=== PATIENT | male | born 1975 | race Caucasian/White ===

== ENCOUNTER 2020-05-19 15:23 | Inpatient (IN) | payer OTHER, SELFPAY ==
[2020-05-19 15:23] VITALS: BP 150/65; PULSE 93; RESP 18; TEMP 37.5; O2SAT 98; BMI 24.4
--- NOTE | 2020-05-19 15:47 | W.ED.PSYCH ---
HPI - Psych General: Chief Complaint: Psychiatric Symptoms Stated Complaint: 96 Time Seen by Provider: 05/19/20 15:35 History of Present Illness: HPI Narrative: 44-year-old male brought in by [facility] on a 96-hour hold. 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 He is tearful and apologetic now. He was held overnight in senior care judges she did 96-hour mental health evaluation he was brought to the ER this afternoon. He denies being suicidal now but he does make comments about he has difficulty controlling his thoughts and emotions and he will have rapid alternating what he describes as very excitable highs and then he will crash and be extremely depressed at various times. This is been an ongoing cycle for him for some time. He notes it is exacerbated by alcohol use. MD complaint: suicidal ideation and feels depressed Onset (ago): hour(s) Duration: intermittent History of same: Yes Exacerbating factors: alcohol Context: recent alcohol abuse Associated psychiatric symptoms: suicidal ideation and racing thoughts Associated symptoms: Reports depression and suicidal ideation; Deny auditory hallucinations, visual hallucinations, delusions, homicidal ideation or racing thoughts Treatments prior to arrival: placed on mental health hold If self harm: admits thoughts of self harm and has acted on plan Review of Systems Const: Denies: fever(s), chills, body aches, change in appetite, fatigue or malaise ENMT: Denies: throat pain, ear or mastoid pain, nasal discharge or nasal congestion Card: Denies: chest pain, edema, dyspnea on exertion or orthopnea Resp: Denies: dyspnea, productive cough or non-productive cough GI: Denies: abdominal pain, nausea, vomiting, hematemesis, coffee ground emesis, diarrhea, constipation, bloating, hematochezia or melena : Denies: flank pain, dysuria, urinary frequency or urinary urgency Skin/Breast: Denies: rash or pruritus Psych: Reports: depression and suicidal ideation; Denies: visual hallucinations, auditory hallucinations or homicidal ideation Physical Exam Const: COMMON NORMALS: no acute distress GENERAL APPEARANCE: cooperative and comfortable ORIENTATION/CONSCIOUSNESS: Yes awake, Yes oriented to person, Yes oriented to place and Yes oriented to time HENMT: COMMON NORMALS: normocephalic, atraumatic and hearing grossly normal bilaterally HEAD & SCALP: normocephalic and atraumatic Eye: COMMON NORMALS: Equal, round and reactive pupils present, EOMs intact bilaterally, conjunctivae normal and no scleral icterus CONJUNCTIVA: Yes conjunctivae normal PUPIL: Yes Equal, round and reactive pupils present Neck/C-Spine: COMMON NORMALS: full ROM, no lymphadenopathy, supple and no JVD Lymph: LYMPHATIC: no lymphadenopathy noted and no lymphedema noted Resp: COMMON NORMALS: normal respiratory effort, No retractions, No use of accessory muscles and clear to auscultation bilaterally AUSCULTATION: clear to auscultation bilaterally Cardio: COMMON NORMALS: no JVD, regular rate, regular rhythm and No murmurs present (Cardio) RATE: regular rate RHYTHM: regular rhythm GI: COMMON NORMALS: Soft to palpation and No hepatosplenomegaly present AUSCULTATION: Yes normoactive bowel sounds PALPATION: Yes Soft to palpation, No Tenderness to palpation present (GI), No Guarding due to palpation present (GI) and Yes No hepatosplenomegaly present Extremity: COMMON NORMALS: normal to inspection, capillary refill normal, no clubbing, cyanosis or edema, no calf tenderness and no pedal edema NARRATIVE EXTREMITY EXAM: Large bruise medial left thigh patient reports it occurred at work. Neuro: SENSORIUM/ORIENTATION: Yes oriented to person, Yes oriented to place and Yes oriented to time Psych: THOUGHT CONTENT: No delusions Skin: COMMON NORMALS: no rashes or lesions noted GENERAL SKIN EXAM: no rashes or lesions noted MDM - Psych MDM Narrative: Medical decision making narrative: Patient is a 96-hour hold that accompanied him with the police when he arrived. This is reviewed consistent with what he actually tells me in his history. Will admit for suicidal ideation questionable bipolar discussed Dr. Hdz orders are written. Lab Data: Labs: Lab Results 05/19/20 05/19/20 05/19/20 Range/Units 15:41 15:41 15:45 WBC 10.8 H (4.0-10.0) 10^3/ uL RBC 5.43 H (4.1-5.3) 10^6/u L Hgb 15.9 (11.7-16.6) g/dL Hct 46.8 (42.0-52.0) % MCV 86.2 (80-94) fL MCH 29.3 (28.0-34.0) pg MCHC 34.0 (30.0-36.0) g/dL RDW 13.2 (12.1-15.1) % Plt Count 406 H (130-400) 10^3/c mm MPV 9.4 (7.4-10.4) fL Neut % (Auto) 81.9 % Lymph % (Auto) 12.2 % [place] % (Auto) 4.9 % Eos % (Auto) 0.2 % Baso % (Auto) 0.6 % Neut # (Auto) 8.87 H (1.8-7.7) 10^3/u L Lymph # (Auto) 1.3 (0.8-4.8) 10^3/u L [place] # (Auto) 0.5 (0.2-0.9) 10^3/u L Eos # (Auto) 0.0 (0.0-0.8) 10^3/u L Baso # (Auto) 0.1 (0.0-0.1) 10^3/u L Nucleated RBC % (a uto) 0 % Nucleated RBCs # 0.0 /100WBC Sodium 135 L (136-145) mmol/L Potassium 3.7 (3.5-5.1) mmol/L Chloride 100 (98-107) mmol/L Carbon Dioxide 26 (22-29) mmol/L Anion Gap 12.7 (5-19) BUN 8 (6-20) mg/dL Creatinine 0.7 (0.7-1.2) mg/dL GFR Calculation 121.4 (90-130) mL/min Glucose 101 (65-115) mg/dL Calculated Osmolal ity 278 L (285-295) mOsm/k g Calcium 9.7 (8.5-10.5) mg/dL Total Bilirubin 0.8 (0.15-1.2) mg/dL AST 24 (0-40) U/L ALT 17 (0-41) U/L Alkaline Phosphata se 95 (40-130) IU/L Total Protein 7.7 (6.6-8.7) g/dL Albumin 5.0 (3.5-5.2) g/dL Globulin 2.7 (1.3-4.6) g/dL Urine Color Yellow (Yellow) Urine Appearance Clear (CLEAR) Urine pH 6 (5-7) Ur Specific Gravit y 1.020 (1.005-1.030) Urine Protein Neg (Negative) Urine Glucose (UA) Norm (Normal) Urine Ketones 2+ H (Negative) Urine Blood Neg (Negative) Urine Nitrate Negative (Negative) Urine Bilirubin Neg (Negative) Urine Urobilinogen 1 H (Negative) mg/dL Ur Leukocyte Kathy ase Negative (Negative) Salicylates < 0.3 L (3-10) mg/dL Urine Opiates Scre en (Negative) ng/mL Acetaminophen < 5.0 L (10-30) ug/mL Ur Barbiturates Sc reen (Negative) ng/mL Ur Phencyclidine S crn (Negative) ng/mL Ur Amphetamines Sc reen (Negative) ng/mL U Benzodiazepines Scrn (Negative) ng/mL Urine Cocaine Scre en (Negative) ng/mL U Marijuana (THC) Screen (Negative) ng/mL Ethyl Alcohol < 10 (0-10) mg/dL 05/19/20 Range/Units 15:45 WBC (4.0-10.0) 10^3/ uL RBC (4.1-5.3) 10^6/u L Hgb (11.7-16.6) g/dL Hct (42.0-52.0) % MCV (80-94) fL MCH (28.0-34.0) pg MCHC (30.0-36.0) g/dL RDW (12.1-15.1) % Plt Count (130-400) 10^3/c mm MPV (7.4-10.4) fL Neut % (Auto) % Lymph % (Auto) % [place] % (Auto) % Eos % (Auto) % Baso % (Auto) % Neut # (Auto) (1.8-7.7) 10^3/u L Lymph # (Auto) (0.8-4.8) 10^3/u L [place] # (Auto) (0.2-0.9) 10^3/u L Eos # (Auto) (0.0-0.8) 10^3/u L Baso # (Auto) (0.0-0.1) 10^3/u L Nucleated RBC % (a uto) % Nucleated RBCs # /100WBC Sodium (136-145) mmol/L Potassium (3.5-5.1) mmol/L Chloride (98-107) mmol/L Carbon Dioxide (22-29) mmol/L Anion Gap (5-19) BUN (6-20) mg/dL Creatinine (0.7-1.2) mg/dL GFR Calculation (90-130) mL/min Glucose (65-115) mg/dL Calculated Osmolal ity (285-295) mOsm/k g Calcium (8.5-10.5) mg/dL Total Bilirubin (0.15-1.2) mg/dL AST (0-40) U/L ALT (0-41) U/L Alkaline Phosphata se (40-130) IU/L Total Protein (6.6-8.7) g/dL Albumin (3.5-5.2) g/dL Globulin (1.3-4.6) g/dL Urine Color (Yellow) Urine Appearance (CLEAR) Urine pH (5-7) Ur Specific Gravit y (1.005-1.030) Urine Protein (Negative) Urine Glucose (UA) (Normal) Urine Ketones (Negative) Urine Blood (Negative) Urine Nitrate (Negative) Urine Bilirubin (Negative) Urine Urobilinogen (Negative) mg/dL Ur Leukocyte Kathy ase (Negative) Salicylates (3-10) mg/dL Urine Opiates Scre en Negative (Negative) ng/mL Acetaminophen (10-30) ug/mL Ur Barbiturates Sc reen Negative (Negative) ng/mL Ur Phencyclidine S crn Negative (Negative) ng/mL Ur Amphetamines Sc reen Positive H (Negative) ng/mL U Benzodiazepines Scrn Negative (Negative) ng/mL Urine Cocaine Scre en Negative (Negative) ng/mL U Marijuana (THC) Screen Positive H (Negative) ng/mL Ethyl Alcohol (0-10) mg/dL Discharge Plan Discharge Patient Disposition: Admitted As Inpatient Admit Provider: Michael Hdz Clinical Impression: Suicidal ideation, Bipolar disorder, ETOH abuse Condition: Stable Coding Level of Care Code ED Trip Rider for Elizabeth Fwd Exam Comprehensive
--- NOTE | 2020-05-19 15:48 | PC.NURSE ---
Patients belongings placed in a patients belongings bag and put outside of the room.
[2020-05-19 15:56] LABS: Add Urine Microscopic? NO
[2020-05-19 15:57] LABS: Basophils # 0.1 10^3/uL (0.0-0.1); Basophils % 0.6 %; Eosinophils % 0.2 %; Hematocrit 46.8 % (42.0-52.0); Hemoglobin 15.9 g/dL (11.7-16.6); Lymphocytes # 1.3 10^3/uL (0.8-4.8); Lymphocytes % 12.2 %; Mean Corpuscular Hemoglobin 29.3 pg (28.0-34.0); Mean Corpuscular Volume 86.2 fL (80-94); Mean Platelet Volume 9.4 fL (7.4-10.4); Monocytes # 0.5 10^3/uL (0.2-0.9); Monocytes % 4.9 %; Neutrophils # 8.87 10^3/uL (1.8-7.7); Neutrophils % 81.9 %; Nucleated Red Blood Cells % 0 %; Platelet Count 406 10^3/cmm (130-400); Red Blood Count 5.43 10^6/uL (4.1-5.3); Red Cell Distribution Width 13.2 % (12.1-15.1); White Blood Count 10.8 10^3/uL (4.0-10.0)
[2020-05-19 16:02] LABS: Urine Appearance Clear (CLEAR); Urine Color Yellow (Yellow); pH Urine 6 (5-7)
[2020-05-19 16:03] LABS: Bilirubin Urine Neg (Negative); Blood Urine Neg (Negative); Glucose Urine UA Norm (Normal); Ketones Urine 2+ (Negative); Leukocyte Esterase Urine Negative (Negative); Nitrate Urine Negative (Negative); Protein Urine Neg (Negative); Urobilinogen Urine 1 mg/dL (Negative)
[2020-05-19 16:12] LABS: Amphetamines Screen Urine Positive (Negative); Barbiturates Screen Urine Negative (Negative); Benzodiazepines Screen Urine Negative (Negative); Cocaine Screen Urine Negative (Negative); Opiate Screen Urine Negative (Negative); PCP Screen Urine Negative (Negative); THC Screen Urine Positive (Negative)
[2020-05-19 16:19] LABS: Alanine Aminotransferase 17 U/L (0-41); Alkaline Phosphatase 95 IU/L (40-130); Anion Gap 12.7 (5-19); Aspartate Amino Transferase 24 U/L (0-40); Blood Urea Nitrogen 8 mg/dL (6-20); Calcium 9.7 mg/dL (8.5-10.5); Carbon Dioxide 26 mmol/L (22-29); Chloride 100 mmol/L (98-107); Globulin 2.7 g/dL (1.3-4.6); Glomerular Filtration Rate 121.4 mL/min (90-130); Glucose 101 mg/dL (65-115); Osmolality Calculated 278 mOsm/kg (285-295); Potassium 3.7 mmol/L (3.5-5.1); Sodium 135 mmol/L (136-145); Total Bilirubin 0.8 mg/dL (0.15-1.2); Total Protein 7.7 g/dL (6.6-8.7)
[2020-05-19 16:21] LABS: Acetaminophen < 5.0 ug/mL (10-30); Alcohol Level < 10 mg/dL (0-10); Salicylate < 0.3 mg/dL (3-10)
[2020-05-19 16:46] VITALS: BP 142/117; PULSE 82; RESP 16; O2SAT 98
[2020-05-19 16:58] VITALS: BP 143/73; PULSE 84; RESP 18; TEMP 37.3; O2SAT 98
[2020-05-19 22:00] VITALS: BP 131/80; PULSE 74; RESP 18; TEMP 36.9; O2SAT 96
[2020-05-20] MEDS: hyDROXYzine 25 mg Capsule 50 MG PO ×2 (00:42→20:51)
[2020-05-20] MEDS: trazodone 50 mg Tablet PO ×2 (00:43→20:51)
[2020-05-20] MEDS: acetaminophen 325 mg Tablet 650 MG PO ×3 (00:44→20:50)
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
[2020-05-20 06:00] VITALS: BP 125/84; PULSE 78; RESP 16; TEMP 36.7; O2SAT 100
[2020-05-20] MEDS: nicotine 2 mg Gum BUCCAL ×2 (09:25→13:39)
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
[2020-05-20] MEDS: alum-mag-hydroxide-sime 30 mL UDC PO ×2 (11:15→19:34)
[2020-05-20 13:39] VITALS: BP 123/79; PULSE 81; RESP 18; TEMP 36.6
[2020-05-20] MEDS: fixodent 39 gm Tube 1 APPLIC DENTAL (16:10)
--- NOTE | 2020-05-20 19:36 | PC.NURSE ---
PRN Maalox Pt reports terrible heartburn. Pt given Maalox, will continue to monitor.
[2020-05-20 20:37] VITALS: BP 132/76; PULSE 72; RESP 18; TEMP 36.6; O2SAT 98
[2020-05-21 06:00] VITALS: BP 117/67; PULSE 75; RESP 18; TEMP 36.4; O2SAT 98; BMI 24.4
[2020-05-21] MEDS: alum-mag-hydroxide-sime 30 mL UDC PO ×2 (06:02→22:40)
--- NOTE | 2020-05-21 06:03 | PC.NURSE ---
PRN MAALOX GIVEN FOR HEARBURN
--- NOTE | 2020-05-21 06:11 | PC.NURSE ---
TRAZODONE/VISTERIL @ 2100 PT RECEIVED TRAZODONE 50MG PO, VISTERIL 50MG PO, .. GIVEN FOR INSOMNIA, ANXIETY, result sleep, reduction of anxiety, result, pt slept and experienced less anxiety.
[2020-05-21] MEDS: risperiDONE 0.25 mg Tablet 0.5 MG PO ×2 (09:22→17:18)
[2020-05-21] MEDS: fixodent 39 gm Tube 1 APPLIC DENTAL (11:54)
--- NOTE | 2020-05-21 11:55 | P.PN_ITS ---
Subjective NPU Subjective: Interval history: Ken presents today reporting that things are going better. He reports he is tolerating the low-dose Risperdal well and denying any issues. We agree we work with the treatment team tomorrow to look at a reasonable discharge plan. He reports that he is eating and sleeping better. Mental Status Exam MSE Comments: Well-nourished, well-developed balding white male with hospital scrubs on with adequate grooming and eye contact. No abnormal movements except for resolving psychomotor retardation. Cooperative with exam in no acute distress. Speech was normal rate and volume. Mood described as a little better, affect euthymic. Thought process organized. Thought content: Patient denied suicidal or homicidal ideations, there were no delusions reported or noted, he denied auditory or visual hallucinations. Attention and concentration were intact and memory appeared reliable but none were formally tested. He is alert and oriented x3. Insight and judgment appear fair impulse control appears limited, but improving. Vitals/I&O/Wt Last Vital Signs Temp 97.5 F L 05/21/20 06:00 Pulse 75 05/21/20 06:00 Resp 18 05/21/20 06:00 BP 117/67 05/21/20 06:00 Pulse Ox 98 05/21/20 06:00 Weight last 48 hrs Weight 81.647 kg Weight 81.647 kg Data NPU : 05/19/20 15:41 05/19/20 15:41 A&P Additional A&P Information (1) Suicidal ideation: (2) Bipolar disorder: (3) ETOH abuse: (4) Methamphetamine abuse: (5) Cannabis abuse: (6) Mood disorder: Additional A&P Information This is a 44-year-old white male with a documented history of mental health issues going back at least 10 years with endorsed history of addiction with a positive UDS who presents after being in intermediate for disorderly behavior and presents open to medication trial and possible addiction treatment. 1. Continue current medication. Will consider increasing Risperdal to 1 mg by mouth twice a day before discharge. 2. Continue every 15 minute checks for safety. 3. Encourage individual, group and milieu therapies. 4. Encourage sober living treatment after discharge at the highest level of care to which she is willing to commit. Involuntary Hold Information 96 Hour Hold: 96 Hour Involuntary Admission: Yes 96 Hour Hold Ending Date: 05/25/20 96 Hour Hold Ending Time: 16:00 Attestations NPU Medical Necessity Statement*: Inpatient hospitalization is medically necessary and the clinically appropriate intervention at this time. We will monitor medications and make changes as indicated. Patient will be in the hospital for over two midnights. Likely length of stay 1-3 days. Coding Level of Care Code Acute Gas Flow Regulator for Elizabeth Smith
[2020-05-21 13:57] VITALS: BP 116/81; PULSE 87; RESP 18; TEMP 36.8
[2020-05-21] MEDS: nicotine 2 mg Gum BUCCAL (17:20)
[2020-05-21 19:39] VITALS: BP 126/78; PULSE 75; RESP 16; TEMP 36.5; O2SAT 97
[2020-05-21] MEDS: trazodone 50 mg Tablet PO (22:38)
[2020-05-21] MEDS: hyDROXYzine 25 mg Capsule 50 MG PO (22:38)
[2020-05-22 06:00] VITALS: BP 114/75; PULSE 73; RESP 19; TEMP 36.6; O2SAT 98
[2020-05-22] MEDS: risperiDONE 0.25 mg Tablet 0.5 MG PO ×2 (08:48→20:40)
[2020-05-22] MEDS: alum-mag-hydroxide-sime 30 mL UDC PO ×2 (12:07→20:40)
--- NOTE | 2020-05-22 12:07 | PC.NURSE ---
PRN MAALOX 30 ML GIVEN PO PER PT C/O INDIGESTION
[2020-05-22 14:00] VITALS: BP 128/88; PULSE 83; RESP 18; TEMP 36.1; O2SAT 99
--- NOTE | 2020-05-22 16:06 | P.PN_ITS ---
Subjective NPU Subjective: Interval history: Ken presented today reporting that he is feeling a little better. He reports the medication is working well and he spent time working with the treatment team to determine a clear discharge plan to continue him and mental health treatment and have resources for any sober living treatment. We discussed the risk benefits and alternatives of likely increasing his Risperdal before he leaves and he understood and agreed to proceed as is documented in this note. Mental Status Exam MSE Comments: Well-nourished, well-developed balding white male with hospital scrubs on with adequate grooming and eye contact. No abnormal movements. Cooperative with exam in no acute distress. Speech was normal rate and volume. Mood described as better, affect euthymic. Thought process organized. Thought content: Patient denied suicidal or homicidal ideations, there were no delusions reported or noted, he denied auditory or visual hallucinations. Attention and concentration were intact and memory appeared reliable but none were formally tested. He is alert and oriented x3. Insight and judgment appear fair impulse control appears limited, but improving. Vitals/I&O/Wt Last Vital Signs Temp 97.9 F 05/22/20 20:41 Pulse 73 05/22/20 20:41 Resp 17 05/22/20 20:41 BP 138/94 05/22/20 20:41 Pulse Ox 98 05/22/20 20:41 Weight last 48 hrs Weight 81.647 kg Data NPU : 05/19/20 15:41 05/19/20 15:41 A&P Additional A&P Information (1) Suicidal ideation: (2) Bipolar disorder: (3) ETOH abuse: (4) Methamphetamine abuse: (5) Cannabis abuse: (6) Mood disorder: Additional A&P Information This is a 44-year-old white male with a documented history of mental health issues going back at least 10 years with endorsed history of addiction with a positive UDS who presents after being in prison for disorderly behavior and pr esents open to medication trial and possible addiction treatment. 1. Continue current medication. Will consider increasing Risperdal to 1 mg by mouth twice a day before discharge. 2. Continue every 15 minute checks for safety. 3. Encourage individual, group and milieu therapies. 4. Encourage sober living treatment after discharge at the highest level of care to which she is willing to commit. Involuntary Hold Information 96 Hour Hold: 96 Hour Involuntary Admission: Yes 96 Hour Hold Ending Date: 05/25/20 96 Hour Hold Ending Time: 16:00 Attestations NPU Medical Necessity Statement*: Inpatient hospitalization is medically necessary and the clinically appropriate intervention at this time. We will monitor medications and make changes as indicated. Likely discharge tomorrow. 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
[2020-05-22] MEDS: nicotine 2 mg Gum BUCCAL (17:21)
[2020-05-22] MEDS: fixodent 39 gm Tube 1 APPLIC DENTAL (17:21)
[2020-05-22] MEDS: acetaminophen 325 mg Tablet 650 MG PO (20:40)
[2020-05-22] MEDS: hyDROXYzine 25 mg Capsule 50 MG PO (20:40)
[2020-05-22] MEDS: trazodone 50 mg Tablet PO (20:40)
[2020-05-22 20:41] VITALS: BP 138/94; PULSE 73; RESP 17; TEMP 36.6; O2SAT 98
--- NOTE | 2020-05-22 21:53 | PC.NURSE ---
PM ASSESSMENT PT IS SMILING, INTERACTIVE WITH STAFF, STATES, I'M READY TO GO HOME. I AM PLANNING TO FOLLOW UP IN MY HOME TOWN WITH OUT PATIENT CARE. PT COMPLAINS OF HEARTBURN AT NIGHT, HEADACHE, AND MILD BACK PAIN. PAIN RATED AT A 4 ON 1-10 PAIN SCALE. MED NURSE NOTIFIED. HEART/LUNG SOUNDS ARE WNL, V/S NORMAL WITH B/P EXCEPTION OF 138/94. PT DENIES SI/HI, DENIES AH/VH.
[2020-05-23 06:00] VITALS: BP 151/80; PULSE 106; RESP 17; TEMP 36.8; O2SAT 97
[2020-05-23] MEDS: risperiDONE 1 mg Tablet PO (08:40)
[2020-05-23 10:26] VITALS: BP 151/80; PULSE 106; RESP 17; TEMP 36.8; O2SAT 97
[2020-05-23] MEDS: nicotine 2 mg Gum BUCCAL (10:52)
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
== END 2020-05-23 13:12 | disposition home or self-care (01) | DRG 881 ==
LOC: ER 16:35 → NP 16:43
PROVIDERS: Admitting Provider Psychiatry & Neurology Psychiatry; Emergency Provider Family Medicine; PCP Nurse Practitioner Family; Visit Provider Psychiatry & Neurology Psychiatry
DX: F32.9 Major depressive disorder, single episode, unspecified (principal); R45.851 Suicidal ideations; F10.10 Alcohol abuse, uncomplicated; F15.10 Other stimulant abuse, uncomplicated; F12.10 Cannabis abuse, uncomplicated; F17.210 Nicotine dependence, cigarettes, uncomplicated
CPT/HCPCS: 12345; 80053; 80306; 80307; 81003; 85025; 99284